=== PATIENT | male | born 1975 | race African-American/Black ===

== ENCOUNTER 2016-03-30 16:38 | Emergency (ER) | payer BC, OTHER ==
[2016-03-30 16:54] VITALS: BP 153/101
--- NOTE | 2016-03-30 17:05 | UC ---
Elbow Pain - HPI Summary HPI Summary: right elbow pain and swelling after a fall 4 weeks ago right elbow is swollen and feels warm, no fevers, streaking - History of Current Complaint Chief Complaint: UCUpperExtremity Stated Complaint: ELBOW INJURY Time Seen by Provider: 03/30/16 16:58 Hx Obtained From: Patient Mechanism of Injury: fall Onset/Duration: Weeks - 4, Traumatic, Still Present Severity Initially: Mild Severity Currently: Mild - hurts with certian postions Location Of Pain: Is Discrete @ - right elbow Character: Aching Aggravating Factor(s): Movement Alleviating Factor(s): Nothing Associated Signs And Symptoms: Positive: Swelling, Redness - Allergies/Home Medications Allergies/Adverse Reactions: Allergies Allergy/AdvReac Type Severity Reaction Status Date / Time Cats Allergy See Comment Uncoded 03/30/16 16:54 seasonal allergy Allergy Eyes Uncoded 05/13/14 12:08 Itchy/Swollen/Red/Watery PMH/Surg Hx/FS Hx/Imm Hx Previously Healthy: No Endocrine History Of: Reports: Diabetes - not on meds now Denies: Thyroid Disease Cardiovascular History Of: Denies: Cardiac Disorders, Hypertension Respiratory History Of: Reports: Asthma Denies: COPD GI/ History Of: Denies: Ulcer - Surgical History Surgical History: None - Family History Known Family History: Positive: Hypertension, Diabetes - Social History Occupation: Employed Full-time Lives: With Family Alcohol Use: Occasionally Substance Use Type: None Smoking Status (MU): Light Every Day Tobacco Smoker Type: Cigarettes Amount Used/How Often: 4 CIGARETTES Length of Time of Smoking/Using Tobacco: 18 YEARS Have You Smoked in the Last Year: Yes Household Exposure Type: Cigarettes Cessation Counseling: Counseled 3+Min - 10 Min Review of Systems Constitutional: Negative Skin: Negative Eyes: Negative ENT: Negative Respiratory: Negative Cardiovascular: Negative Gastrointestinal: Negative Genitourinary: Negative Motor: Negative Neurovascular: Negative Musculoskeletal: Arthralgia - certian movements of elbow Neurological: Negative Psychological: Negative All Other Systems Reviewed And Are Negative: Yes Physical Exam Triage Information Reviewed: Yes Appearance: Well-Appearing, No Pain Distress, Well-Nourished Vital Signs: Initial Vital Signs Temp 98.9 F 03/30/16 16:47 Pulse 95 03/30/16 16:47 Resp 16 03/30/16 16:47 BP 153/101 03/30/16 16:47 Pulse Ox 100 03/30/16 16:47 Vital Signs Reviewed: Yes Eye Exam: Normal Eyes: Positive: Conjunctiva Clear ENT Exam: Normal ENT: Positive: Normal ENT inspection, Hearing grossly normal. Negative: Nasal congestion, Nasal drainage, Trismus, Muffled/hoarse voice Neck exam: Normal Neck: Positive: Supple, Nontender, No Lymphadenopathy Respiratory Exam: Normal Respiratory: Positive: Chest non-tender, Lungs clear, Normal breath sounds, No respiratory distress, No accessory muscle use Cardiovascular Exam: Normal Cardiovascular: Positive: RRR, No Murmur, Pulses Normal, Brisk Capillary Refill Musculoskeletal Exam: Normal Musculoskeletal: Positive: Strength Intact, ROM Intact, Edema @ - swollen olecran bursa right elbow Neurological Exam: Normal Neurological: Positive: Alert, Muscle Tone Normal Psychological Exam: Normal Skin Exam: Normal Diagnostics - Laboratory Diagnostic Studies Completed/Ordered: [id number] tendonitis, swelling consistant with bursitis Elbow Pain Course/Dx - Course Course Of Treatment: bactrim, ortho, ibuprofen prn - Differential Dx/Diagnosis Differential Diagnosis/HQI/PQRI: Bursitis, Cellulitis, Contusion, Fracture ( Closed), Joint Effusion, Sprain, Strain Provider Diagnoses: olecranon bursitis (r), nicotine dependant, hypertensive Discharge - Discharge Plan Condition: Stable Disposition: HOME Prescriptions: Sulfamethox/Trimethoprim DS* [Bactrim DS 800/160 TAB*] 1 tab PO BID #20 tab Patient Education Materials: Sulfamethoxazole/Trimethoprim (By mouth), Ibuprofen (By mouth), How to Stop Smoking (ED), Elbow Bursitis (ED), Cigarette Smoking and Your Health (GEN), DASH Eating Plan (ED), Hypertension (ED), Tendinitis (ED) Referrals: Shay Licea MD [Medical Doctor] - Shay Bernstein MD [Medical Doctor] - 3 Days
--- NOTE | 2016-03-30 17:37 | RAD ---
INDICATION: Pain in olecranon region post fall one month ago. COMPARISON: None. TECHNIQUE: AP, lateral, and oblique views RIGHT elbow. REPORT: Normal articular alignment. Negative for fat pad displacement to indicate effusion. Soft tissue swelling superficial to the olecranon process. Olecranon bursitis not excluded. Small enthesophyte at the triceps tendon insertion at the olecranon process. IMPRESSION: 1. Dorsal soft tissue swelling which may reflect chronic hematoma or olecranon bursitis. 2. Stigmata of chronic triceps tendinopathy.
== END 2016-03-30 18:05 | disposition home or self-care (01) ==
LOC: UCEAST 16:38
DX: M70.21 Olecranon bursitis, right elbow (principal); Y93.9 Activity, unspecified; E11.9 Type 2 diabetes mellitus without complications; I10 Essential (primary) hypertension; F17.210 Nicotine dependence, cigarettes, uncomplicated
CPT/HCPCS: 99212; G0463

== ENCOUNTER 2016-10-14 19:46 | Emergency (ER) | payer BC ==
[2016-10-14 19:52] VITALS: BP 154/98
--- NOTE | 2016-10-14 20:32 | RAD ---
INDICATION: Heal injury. TECHNIQUE: 4 views of the right calcaneus were obtained. FINDINGS: The bones are in normal alignment. No fracture is seen. Joint spaces appear maintained. IMPRESSION: NO EVIDENCE FOR FRACTURE, IF THE PATIENT'S SYMPTOMS PERSIST RECOMMEND FOLLOW-UP IMAGING.
--- NOTE | 2016-10-14 21:20 | UC ---
Lower Extremity/Ankle HPI - HPI Summary HPI Summary: JUMPED OVER A WALL WHILE CHASING A RESIDENT AT 1400PM TODAY. TWISTED ANKLE, FELT PAIN IN HEEL. NO PAIN OR TENDERNESS IN LOWER BACK, PELVIS OR SPINE. PAIN IN HEEL WITH AMBULATION. NO PAIN IN ACHILLES TENDON. - History of Current Complaint Chief Complaint: UCLowerExtremity Stated Complaint: FOOT INJURY Time Seen by Provider: 10/14/16 20:01 Hx Obtained From: Patient Onset/Duration: Sudden Onset, Lasting Hours, Still Present Severity Initially: Moderate Severity Currently: Moderate Aggravating Factor(s): Standing, Ambulation Alleviating Factor(s): Rest Able to Bear Weight: Yes Related History: Occupational Injury - Risk Factors Gout Risk Factors: Negative DVT Risk Factors: Negative Septic Arthritis Risk Factor: Negative - Allergies/Home Medications Allergies/Adverse Reactions: Allergies Allergy/AdvReac Type Severity Reaction Status Date / Time Cats Allergy See Comment Uncoded 10/14/16 19:52 seasonal allergy Allergy Eyes Uncoded 10/14/16 19:52 Itchy/Swollen/Red/Watery Home Medications: Home Medications NK [No Home Medications Reported] 10/14/16 [History Confirmed 10/14/16] PMH/Surg Hx/FS Hx/Imm Hx Previously Healthy: Yes - Surgical History Surgical History: None - Family History Known Family History: Positive: Hypertension, Diabetes - Social History Occupation: Employed Full-time Lives: With Family Alcohol Use: Occasionally Substance Use Type: None Smoking Status (MU): Light Every Day Tobacco Smoker Type: Cigarettes Amount Used/How Often: 4 CIGARETTES Length of Time of Smoking/Using Tobacco: 18 YEARS Have You Smoked in the Last Year: Yes Household Exposure Type: Cigarettes Review of Systems Constitutional: Negative Skin: Negative Eyes: Negative ENT: Negative Respiratory: Negative Cardiovascular: Negative Gastrointestinal: Negative Genitourinary: Negative Motor: Negative Neurovascular: Negative Musculoskeletal: Arthralgia, Myalgia Neurological: Negative Psychological: Negative All Other Systems Reviewed And Are Negative: Yes Physical Exam Triage Information Reviewed: Yes Appearance: Well-Appearing, No Pain Distress, Well-Nourished Vital Signs: Initial Vital Signs Temp 99.9 F 10/14/16 19:48 Pulse 110 10/14/16 19:48 Resp 18 10/14/16 19:48 BP 154/98 10/14/16 19:48 Pulse Ox 98 10/14/16 19:48 Vital Signs Reviewed: Yes Eye Exam: Normal ENT Exam: Normal ENT: Positive: Normal ENT inspection, TMs normal Dental Exam: Normal Neck exam: Normal Neck: Positive: Supple, Nontender Respiratory Exam: Normal Respiratory: Positive: Chest non-tender, Lungs clear, Normal breath sounds, No respiratory distress, No accessory muscle use Cardiovascular Exam: Normal Cardiovascular: Positive: RRR, No Murmur, Pulses Normal, Brisk Capillary Refill Abdominal Exam: Normal Abdomen Description: Positive: Nontender Musculoskeletal: Positive: Strength Intact, ROM Intact, No Edema, Other: - RIGHT HEEL TENDERNESS; NO SPINAL TENDERNESS, ACHILLES NONTENDER AND INTACT; Neurological Exam: Normal Psychological Exam: Normal Skin Exam: Normal Lower Extremity Course/Dx - Differential Dx/Diagnosis Differential Diagnosis/HQI/PQRI: Sprain, Strain Provider Diagnoses: RIGHT HEEL CONTUSION, RIGHT ANKLE SPRAIN Discharge - Discharge Plan Condition: Stable Disposition: HOME Patient Education Materials: Foot Contusion (ED), Foot Sprain (ED) Forms: *Work Release Referrals: [facility] [Outside] [facility] [place] [facility] [Outside] No Primary Care Phys,NOPCP [Primary Care Provider] - Destiny Jason MD [Medical Doctor] -
== END 2016-10-14 21:20 | disposition home or self-care (01) ==
LOC: UCEAST 19:46
DX: S90.31XA Contusion of right foot, initial encounter (principal); S93.401A Sprain of unspecified ligament of right ankle, initial encounter; F17.210 Nicotine dependence, cigarettes, uncomplicated; J30.9 Allergic rhinitis, unspecified; X58.XXXA Exposure to other specified factors, initial encounter; Y93.39 Activity, other involving climbing, rappelling and jumping off
CPT/HCPCS: 99213; G0463